=== PATIENT | male | born 1965 | race Caucasian/White ===

== ENCOUNTER 2018-11-18 16:17 | Emergency (ER) | payer SELFPAY ==
[~2018-11-18] VITALS: Ht 180.3 cm; Wt 88.2 kg
[2018-11-18 16:23] VITALS: Ht 180.3 cm; Wt 88.2 kg
[2018-11-18] MEDS ORDERED: COZAAR25 MG PO (16:25)
[2018-11-18] MEDS ORDERED: METFORMIN HCL500 M1 PO (16:25)
[2018-11-18] MEDS ORDERED: GLIPIZIDE10 MG PO (16:25)
[2018-11-18] MEDS ORDERED: ZANTAC300 MG PO (16:26)
[2018-11-18 16:48] LABS: BASOPHILS 0.1 % (0-2); EOSINOPHILS 2.1 % (0-7); HEMATOCRIT 45.8 % (42.0-54.0); HEMOGLOBIN 16.9 g/dL (13.5-17.5); IMMATURE GRANULOCYTES 0.1 % (0-5); LYMPHOCYTES 17.9 % (15-50); MCH 31.4 pg (26.0-34.0); MCHC 36.9 g/dL (31.0-37.0); MEAN PLATELET VOLUME 11.7 fL (7.4-10.4); MONOCYTES 5.5 % (2-11); NEUTROPHILS 74.3 % (40-80); PLATELET COUNT 236 10x3/uL (130-400); RBC 5.39 10x6/uL (4.20-6.10); WBC 9.7 10x3/uL (4.8-10.8)
[2018-11-18 17:05] LABS: ALBUMIN 4.5 g/dL (3.4-5.0); ANION GAP 18.7 mmol/L (8-16); BILIRUBIN - TOTAL 0.82 mg/dL (0.2-1.3); CALCIUM 9.5 mg/dL (8.5-10.1); CARBON DIOXIDE 21.5 mmol/L (21.0-32.0); CREATININE - SERUM 1.2 mg/dL (0.6-1.3); POTASSIUM - SERUM 4.2 mmol/L (3.5-5.1); PROTEIN - SERUM 8.9 g/dL (6.4-8.2)
[2018-11-18 18:17] LABS: APPEARANCE CLEAR (CLEAR); BILIRUBIN NEGATIVE (NEGATIVE); COLOR YELLOW (YELLOW); GLUCOSE 100 mg/dL (NEGATIVE); KETONE SMALL mg/dL (NEGATIVE); NITRITE NEGATIVE (NEGATIVE); PROTEIN 1+ mg/dL (NEGATIVE); SPECIFIC GRAVITY 1.025 (1.005-1.020); UROBILINOGEN NORMAL (NORMAL)
[2018-11-18] MEDS ORDERED: HYDROCODONE-A1 UDTA2 PO (18:18)
[2018-11-18] MEDS ORDERED: CYCLOBENZAPRINE10 MG PO (18:18)
[2018-11-18] MEDS ORDERED: ZOFRAN ODT4 MG/UDTAB PO (18:18)
[2018-11-18 18:19] LABS: BACTERIA FEW /hpf (NONE SEEN); EPITHELIAL CELLS NSEEN /hpf (0-5); HYALINE CAST 0-5 /lpf (NONE SEEN); MUCUS <1+ /lpf (NONE SEEN); RED CELLS - URINE NONE SEEN /hpf (0-5); WHITE CELLS - URINE 0-5 /hpf (0-5)
[2018-11-18 18:59] VITALS: BP 138/79
== END 2018-11-18 18:59 | disposition home or self-care (01) ==
LOC: D.ER 16:17
PROVIDERS: Emergency Medicine
DX: S32.009A Unspecified fracture of unspecified lumbar vertebra, initial encounter for closed fracture (principal); X58.XXXA Exposure to other specified factors, initial encounter; Y93.89 Activity, other specified; Y92.89 Other specified places as the place of occurrence of the external cause; K59.00 Constipation, unspecified

== ENCOUNTER 2019-08-23 12:32 | Emergency (ER) | payer SELFPAY ==
[~2019-08-23] VITALS: Ht 180.3 cm; Wt 89.5 kg
[~2019-08-23 12:32] MED LIST: COZAAR25 MG PO; CYCLOBENZAPRINE10 MG PO; GLIPIZIDE10 MG PO; HYDROCODONE-A1 UDTA2 PO; METFORMIN HCL500 M1 PO; ZANTAC300 MG PO; ZOFRAN ODT4 MG/UDTAB PO
[2019-08-23 12:41] VITALS: Ht 180.3 cm; Wt 89.5 kg
[2019-08-23] MEDS ORDERED: FAMOTIDINE10 MG PO (12:44)
[2019-08-23 12:59] LABS: BASOPHILS 0.1 % (0-2); EOSINOPHILS 0.3 % (0-7); HEMATOCRIT 47.8 % (42.0-54.0); HEMOGLOBIN 16.5 g/dL (13.5-17.5); IMMATURE GRANULOCYTES 0.1 % (0-5); MCH 30.5 pg (26.0-34.0); MCHC 34.5 g/dL (31.0-37.0); MCV 88.4 fL (80.0-100.0); MONOCYTES 5.4 % (2-11); NEUTROPHILS 74.1 % (40-80); PLATELET COUNT 213 10x3/uL (130-400); RBC 5.41 10x6/uL (4.20-6.10); RDW 13.5 % (11.5-14.5); WBC 8.7 10x3/uL (4.8-10.8)
[2019-08-23 13:08] LABS: CALC OSMOLALITY 282 mosm/kg (275-300); CALCIUM 9.5 mg/dL (8.5-10.1); CARBON DIOXIDE 24.7 mmol/L (21.0-32.0); CHLORIDE - SERUM 101 mmol/L (98-107); CREATININE - SERUM 1.2 mg/dL (0.6-1.3); GLUCOSE 320 mg/dL (74-106); POTASSIUM - SERUM 4.2 mmol/L (3.5-5.1); SODIUM 135 mmol/L (136-145); UREA NITROGEN 16 mg/dL (7-18); eGFR NON AFRICAN AMERICAN 67 mL/min (90-120)
[2019-08-23 13:16] LABS: ALBUMIN 4.4 g/dL (3.4-5.0); ALKALINE PHOSPHATASE 86 U/L (30-120); ALT (SGPT) 32 U/L (10-68); AMYLASE - SERUM 39 U/L (25-115); BILIRUBIN - TOTAL 0.79 mg/dL (0.2-1.3); LIPASE 146 U/L (73-393); PROTEIN - SERUM 8.6 g/dL (6.4-8.2); TROPONIN-I < 0.017 ng/mL (0.000-0.060)
[2019-08-23] MEDS ORDERED: COMPAZINE25 MG RC (14:35)
[2019-08-23] MEDS ORDERED: BENTYL 20 MG TA20 MG PO (14:35)
[2019-08-23 14:46] VITALS: BP 158/75
== END 2019-08-23 14:51 | disposition home or self-care (01) ==
LOC: D.ER 12:32
PROVIDERS: Family Medicine
DX: R11.2 Nausea with vomiting, unspecified (principal); E11.9 Type 2 diabetes mellitus without complications; I10 Essential (primary) hypertension; Z79.84 Long term (current) use of oral hypoglycemic drugs; R10.9 Unspecified abdominal pain

== ENCOUNTER 2020-01-22 21:30 | Inpatient (IN) | payer SELFPAY ==
[~2020-01-22] VITALS: Ht 180.3 cm; Wt 93.2 kg
[~2020-01-22 21:30] MED LIST changes: +BENTYL 20 MG TA20 MG PO; +COMPAZINE25 MG RC; +FAMOTIDINE10 MG PO
[2020-01-22] MEDS ORDERED: REGLAN10 MG PO (21:44)
[2020-01-22] MEDS ORDERED: OMEPRAZOLE20 M1 PO (21:47)
[2020-01-22] MEDS ORDERED: FLOMAX0.4 MG PO (21:48)
[2020-01-22 22:21] LABS: BASOPHILS 0.2 % (0-2); EOSINOPHILS 1.2 % (0-7); HEMATOCRIT 47.6 % (42.0-54.0); HEMOGLOBIN 16.8 g/dL (13.5-17.5); IMMATURE GRANULOCYTES 0.1 % (0-5); MCH 30.1 pg (26.0-34.0); MCHC 35.3 g/dL (31.0-37.0); MCV 85.3 fL (80.0-100.0); MEAN PLATELET VOLUME 11.1 fL (7.4-10.4); MONOCYTES 5.5 % (2-11); PLATELET COUNT 230 10x3/uL (130-400); RBC 5.58 10x6/uL (4.20-6.10); WBC 9.2 10x3/uL (4.8-10.8)
[2020-01-22 22:25] LABS: BILIRUBIN NEGATIVE (NEGATIVE); KETONE MODERATE mg/dL (NEGATIVE); NITRITE NEGATIVE (NEGATIVE); UROBILINOGEN NORMAL mg/dL (< 2)
[2020-01-22 22:35] LABS: CALC OSMOLALITY 284 mosm/kg (275-300); CALCIUM 9.1 mg/dL (8.5-10.1); CARBON DIOXIDE 22.9 mmol/L (21.0-32.0); CHLORIDE - SERUM 95 mmol/L (98-107); CREATININE - SERUM 1.3 mg/dL (0.6-1.3); POTASSIUM - SERUM 4.2 mmol/L (3.5-5.1); SODIUM 134 mmol/L (136-145); UREA NITROGEN 16 mg/dL (7-18); eGFR NON AFRICAN AMERICAN 61 mL/min (90-120)
[2020-01-22 22:38] LABS: GLUCOSE 395 mg/dL (74-106)
[2020-01-22 22:43] VITALS: BP 178/113
[2020-01-22 22:43] LABS: ALBUMIN 4.2 g/dL (3.4-5.0); ALKALINE PHOSPHATASE 103 U/L (30-120); ALT (SGPT) 42 U/L (10-68); AMYLASE - SERUM 25 U/L (25-115); BILIRUBIN - TOTAL 0.81 mg/dL (0.2-1.3); LIPASE 92 U/L (73-393); PROTEIN - SERUM 8.7 g/dL (6.4-8.2); TROPONIN-I < 0.017 ng/mL (0.000-0.060)
[2020-01-22 23:31] VITALS: BP 167/115
[2020-01-22 23:45] VITALS: BP 155/111
[2020-01-23] VITALS (11 sets, daily range): BP systolic 99–172; BP diastolic 57–109; Ht 180.3 cm; Wt 93.2 kg
[2020-01-23] MEDS ORDERED: GLUCOPHAGE500 MG PO (02:42)
--- NOTE | 2020-01-23 03:08 | NUR ---
RECIEVED REPORT FROM ARMIDA ROGERS IN ER. ARRIVED TO FLOOR IN W/C. TRANSFERED SELF TO BED. ALERT AND ORIENTED X4. UP AD MAMI TO B/R. DENIES ANY NEEDS. ASSESSMENT COMPLETED.
[2020-01-23 06:24] LABS: APTT 28.3 SECONDS (22.8-39.4); INR 1.11 (0.85-1.17); PROTIME 14.3 SECONDS (11.6-15.0)
[2020-01-23 06:26] LABS: D-DIMER-QUANTITATIVE 0.29 ug/mLFEU (0.20-0.54)
[2020-01-24] VITALS: BP 124/81
--- NOTE | 2020-01-24 01:20 | NUR ---
PATIENT CONVERTED BACK TO NORMAL SINUS.
[2020-01-24 04:00] VITALS: BP 122/82
[2020-01-24 05:48] LABS: BASOPHILS 0.1 % (0-2); EOSINOPHILS 3.5 % (0-7); HEMATOCRIT 42.1 % (42.0-54.0); HEMOGLOBIN 14.3 g/dL (13.5-17.5); IMMATURE GRANULOCYTES 0.1 % (0-5); LYMPHOCYTES 46.7 % (15-50); MCH 29.3 pg (26.0-34.0); MCV 86.3 fL (80.0-100.0); MONOCYTES 6.8 % (2-11); NEUTROPHILS 42.8 % (40-80); PLATELET COUNT 204 10x3/uL (130-400); RBC 4.88 10x6/uL (4.20-6.10); RDW 12.8 % (11.5-14.5); WBC 7.2 10x3/uL (4.8-10.8)
[2020-01-24 06:19] LABS: INR 1.06 (0.85-1.17); PROTIME 13.7 SECONDS (11.6-15.0)
[2020-01-24 06:21] LABS: ALKALINE PHOSPHATASE 73 U/L (30-120); ALT (SGPT) 40 U/L (10-68); BILIRUBIN - TOTAL 0.62 mg/dL (0.2-1.3); CALCIUM 8.2 mg/dL (8.5-10.1); CARBON DIOXIDE 24.3 mmol/L (21.0-32.0); CHLORIDE - SERUM 101 mmol/L (98-107); CHOL - HDL RATIO 10.3 ratio (2.3-4.9); CHOLESTEROL, TOTAL 196 mg/dL (0-200); CREATINE KINASE 50 UL (21-232); HDL CHOLESTEROL 19 mg/dL (32-96); LDL CHOLESTEROL 129 mg/dL (0-100); LDL-HDL RATIO 6.8 ratio (1.5-3.5); MAGNESIUM - SERUM 1.9 mg/dL (1.8-2.4); POTASSIUM - SERUM 3.8 mmol/L (3.5-5.1); PRO BNP 703 pg/mL (0-125); PROTEIN - SERUM 6.7 g/dL (6.4-8.2); SODIUM 134 mmol/L (136-145); TRIGLYCERIDE 243 mg/dL (30-200); UREA NITROGEN 12 mg/dL (7-18); eGFR NON AFRICAN AMERICAN 83 mL/min (90-120)
[2020-01-24 06:24] LABS: CALC OSMOLALITY 275 mosm/kg (275-300); GLUCOSE 237 mg/dL (74-106)
--- NOTE | 2020-01-24 08:10 | NUR ---
PATIENT JUST GOT A SHOWER THIS AM, VISITED WITH PATIENT. PATIENT IS SITTING UP TO SIDE OF THE BED. PLAN OF CARE REVIEWED AND ASSESSMENT HAS BEEN COMPLETED. NAD NOTED. CALL LIGHT IN REACH. MD STATES THERE IS A GOOD CHANCE PATIENT WILL BE ABLE TO GO HOME TODAY.
[2020-01-24] MEDS ORDERED: BETAPACE 120 M120 MG PO (10:42)
--- NOTE | 2020-01-24 11:41 | NUR ---
NURSE GIVES PATIENT DC INSTRUCTIONS, PATIENT SIGNS DOCUMENTATION. PATIENT DENIES QUESTIONS OR NEEDS. IV REMOVED PRESSURE DRESSING APPLIED. NAD NOTED. CALL LIGHT IN REACH
--- NOTE | 2020-01-24 12:33 | NUR ---
PATIENT WHEELED OUT WHEN WHEEL CHAIR AT THIS TIME. PERSONAL BELONGINGS IN HAND. HAS PAPERWORK AND FOLLOW UP APPTS REVIEWED WITH PATIENT. PATIENT VERBS UNDERSTANDING. NAD NOTED.
--- NOTE | 2020-01-25 08:55 | CN ---
PATIENT NAME:LEONELA PHOENIX JR MEDICAL RECORD: [id number] : 69 LOCATION:. D.2117 ADMIT DATE: 01/23/20 ACCOUNT: [id number] CONSULTING PHYSICIAN: ZOYA BOURNE MD REFERRING PHYSICIAN: ALEX TAYLOR MD DATE OF CONSULTATION: 01/23/2020 HISTORY OF PRESENT ILLNESS: A 55-year-old gentleman with history of hypertension, anxiety, and BPH admitted with really more gastrointestinal type symptomatology, nausea, some emesis, has had episode like this, similarly not lasting quite long, was found to be in atrial fibrillation with RVR. We are asked to see him concerning his cardiovascular status. PAST MEDICAL HISTORY: Includes; 1. History of diabetes mellitus. 2. Hypertension. 3. Dyslipidemia. 4. Gastroesophageal reflux disease. ALLERGIES: AUGMENTIN, BACTRIM. MEDICATIONS: Typically include losartan 25 mg p.o. every day, Prilosec 20 every day, metformin 1 gram b.i.d. SOCIAL HISTORY: Nonsmoker, nondrinker. Occasional marijuana use. No set exercise program. REVIEW OF SYSTEMS: The patient reports easy bruising but reports no swollen glands. The patient reports no fever, no night sweats, no significant weight gain, no significant weight loss. No significant exercise tolerance. The patient reports no dry eyes, no irritation, no vision change. Patient reports no difficulty hearing and no ear pain. Patient reports no frequent nose bleeds or nose and sinus problems. Patient reports on arm pain on exertion. No shortness of breath while lying down. No history of heart murmur. Patient reports no cough, no wheezing or coughing up blood. Patient reports no abdominal pain, no vomiting. Normal appetite. No diarrhea and not vomiting blood. No nausea and no constipation. Patient reports no incontinence. No difficulty urinating. No hematuria. No increased frequency. Patient reports no muscle aches. No weakness, no arthralgias, no back pain. No swelling of the extremities. Patient reports no abnormal mole, no jaundice, no rashes. Reports no loss of consciousness. No weakness and no numbness. No seizures, dizziness, or headaches. The patient reports no depression, no sleep disturbance, feeling safe in a relationship and no alcohol abuse. Patient reports on fatigue. Reports no runny nose or sinus pressure. No itching, no hives, and no frequent sneezing. PHYSICAL EXAMINATION: GENERAL: Pleasant, no acute distress, appears stated age. VITAL SIGNS: Blood pressure 109/68, pulse 61 and irregular. HEENT: Normocephalic, atraumatic. NECK: No JVD or bruit. HEART: Irregular, rate is controlled. A II/ systolic ejection murmur. LUNGS: Fairly good excursion. ABDOMEN: Soft, nontender. EXTREMITIES: Pulses 2+. No edema. CONSULT REPORT [id number] LEONELA PHOENIX JR IMPRESSION AND PLAN: Atrial fibrillation, rates are at this point in time controlled on Cardizem drip. We will begin Betapace 120 b.i.d. as well as Xarelto. Duration is greater than 48 hours, so we will not attempt cardioversion at this point. We will plan on ischemic workup when rates are better controlled. Further recommendations based on the above. TRANSINT:[id number] Voice Confirmation ID: [id number] DOCUMENT ID: [id number] ZOYA BOURNE MD at 0855 CC: [id number] DICTATION DATE: 01/23/20 1158 BROACH OPERATOR: 01/23/20 1457 DIS IN 01/24/20 [facility] [address] [place] [place] [id number]
--- NOTE | 2020-01-25 08:55 | EC ---
PATIENT:LEONELA PHOENIX DATE OF SERVICE: 01/23/20 SEX: M MEDICAL RECORD: [id number] DATE OF : [birth year] LOCATION:D. D211 AGE OF PATIENT: 55 ADMISSION DATE: 01/23/20 REFERRING PHYSICIAN: INTERPRETING PHYSICIAN: ZOYA BOURNE MD ECHOCARDIOGRAM REPORT ECHO CHARGES 4 ECHO COMPLETE Date: 01/23/20 CLINICAL DIAGNOSIS: AFIB ECHOCARDIOGRAPHIC MEASUREMENTS (adult normal given) AC root (d.<3.7cm) 2.8 cm LV Septum d (<1.2 cm> 0.9 cm Valve Excursion 1.5 cm LV Septum (systole) 1.2 cm Left Atria (s.<4.0cm> 2.9 cm LVPW d(<1.2cm) 1.0 cm RV (d.<2.3cm) 2.8 cm LVPW (sytole) 1.1 cm LV diastole(<5.6CM) 5.3 cm MV E-F(>70mm/sec) cm LV systole 4.2 cm LVOT Diameter 1.8 cm MV exc.(>10mm) 1.9 cm Est.ejection fraction (50-75%) % DOPPLER: LVIT cm/sec A 33 cm/sec E 87 cm/sec LA cm/sec RVSP 16 mmHg LVOT 120 cm/sec AOP1/2T m/s Asc. Ao 131 cm/sec RVOT 65 cm/sec RA cm/sec PA 87 cm/sec AV Gradient Peak 6.7 mmHg AV Mean 3.6 mmHg AV Area 2.5 cm MV Gradient Peak 5.4 mmHg MV Mean 2.0 mmHg MV Area cm COMMENTS: Delimer: Demarco JERRY Asphalt Smoother: 3 Dr. Goldsmith TAPE# PACS Pericardial Effusion N DATE OF SERVICE: Adequate 2D, color flow imaging, spectral Doppler, and M-Mode. No LVH. LV internal dimension is normal. Wall motion is normal. EF is greater than or equal to 50%. Aortic valve is tricuspid. No evidence of stenosis by Doppler interrogation. Left atrium is normal. Mitral valve shows no prolapse. Trace MR. Right-sided chambers are grossly normal. Trace TR. TRANSINT:[id number] Voice Confirmation ID: [id number] DOCUMENT ID: [id number] ECHOCARDIOGRAM REPORT [id number] ALBANLEONELAZOYA SANCHEZ JR, MD at 0855 CC: [id number] DICTATION DATE: 01/24/20 0754 AIRCRAFT DE ICER INSTALLER: 01/24/20 0912 DIS IN 01/24/20 [place] [id number] [place] [id number]
--- NOTE | 2020-01-27 09:15 | MORECARE ---
CASE MANAGEMENT DISCHARGE SUMMARY PATIENT: LEONELA PHOENIX JR UNIT: [id number] ADM DATE: 01/23/20 AGE: 55 : [birth year] SEX: M ROOM/BED: D.2117 AUTHOR: ZEUS EPPS PHYSICIAN: REFERRING PHYSICIAN: ALEX TAYLOR MD DATE OF SERVICE: 01/27/20 Discharge Plan Patient Name: LEONELA PHOENIX [facility] : 1965 Planned Disposition: Anticipated Discharge Date: Discharge Date: 01/24/2020 Expected LOS: 0 Initial Reviewer: [email or web address] Initial Review Date: 01/27/2020 Generated: 01/27/20 10:14 am Patient Name: LEONELA PHOENIX Page [id number] at 0915 All edits/amendments must be made on the electronic document DICTATION DATE: 01/27/20913 MINE GEOLOGIST: GONZÁLEZ 01/27/20913 RPT#: [id number] DC DATE:01/24/20 STATUS: DIS IN [facility] [address] [place] [address] END OF REPORT
== END 2020-01-24 13:22 | disposition home or self-care (01) | DRG 309 ==
LOC: D.ER 21:30 → D.M2 01-23 00:08 → D.EDHOLD 01-23 00:08 → D.M2 01-23 01:36
PROVIDERS: Family Medicine; ADMIT Family Medicine; ATTEND Family Medicine
DX: I48.0 Paroxysmal atrial fibrillation (principal); E87.1 Hypo-osmolality and hyponatremia; E11.65 Type 2 diabetes mellitus with hyperglycemia; I10 Essential (primary) hypertension; K21.9 Gastro-esophageal reflux disease without esophagitis; G89.29 Other chronic pain; M54.9 Dorsalgia, unspecified; N40.0 Benign prostatic hyperplasia without lower urinary tract symptoms; F41.9 Anxiety disorder, unspecified; F32.9 Major depressive disorder, single episode, unspecified; F12.90 Cannabis use, unspecified, uncomplicated; Z87.891 Personal history of nicotine dependence

== ENCOUNTER 2020-01-31 10:45 | Inpatient (IN) | payer SELFPAY ==
[~2020-01-31] VITALS: Ht 180.3 cm; Wt 88.5 kg
--- NOTE | ~2020-01-31 | HEMODYNAMI ---
PATIENT:LEONELA PHOENIX JR MEDICAL RECORD: [id number] : 69 [facility]ATION[facility] [id number] ADMISSION DATE: 01/31/20 Generatedon:02/01/202013:42 Patient name: LEONELA PHOENIX Patient #: [id number] SSN: : 1965 Date of study: 02/01/2020 Page: Of Hemodynamic Procedure Report Patient Data Patient Demographics Procedure consent was obtained First Name: LEONELA Gender: Male Last Name: ALBAN Suffix: [facility] Initial: Charmaine : 1965 Patient #: [id number] Age: 55 year(s) Race: Unknown Additional ID: [id number] Contact details Address: [address] [place] [address] State: [place] City: [place] Zip code: [address] Past Medical History Allergies Allergen Reaction Date Comments Reported Other allergy 02/01/2020 AUGMENTIN, BACTRIM Admission Admission Data Admission Date: 01/31/2020 Admission Time: 19:17 Room #: D.2121 Height (in.): 70.87 BSA: 2.09 (m2) Height (cm.): 180 BMI: 27.47 (kg/m2) Weight (lbs.): 196.21 Weight (kg.): 89 Lab Results Lab Result Date: 02/01/2020 Lab Result Time: 0:00 Biochemistry Name Units Result Min Max BUN mg/dl 17 --(---*)-- 7 18 Creatinine mg/dl 1 --(--*-)-- 0.6 1.3 eGFR ml/min 82.43760 -*(----)-- 90 120 NONAFRICAN CBC Name Units Result Min Max Hematocrit % 44.4 --(*---)-- 42 54 Hemoglobin g/dl 15.5 --(-*--)-- 13.5 17.5 Procedure Procedure Types Cath Procedure Diagnostic Procedure [facility] w/Coronaries Sedation Charges Moderate Sedation 40-54 minutes PCI Procedure Coronary Stent Coronary Stent Initial Hemochron ACT Test Procedure Description Procedure Date Procedure Date: 02/01/2020 Procedure Start Time: 12:53 Procedure End Time: 13:41 Procedure Staff Name Function Kam Funes MD Performing Physician Darlene Chavira RT Monitor Alban Fierro RN Nurse Nimco Whitley RT Scrub Procedure Data Cath Procedure Fluoroscopy Diagnostic fluoroscopy Total fluoroscopy Time: 6.7 time: 6.7 min min Diagnostic fluoroscopy Total fluoroscopy dose: 492 dose: 492 mGy mGy Contrast Material Contrast Material Type Amount (ml) Isovue 300 106 Entry Location Entry Primary Successful Side Size Upsize Upsize Entry Closure Succes sful Closure Location (Fr) 1 (Fr) 2 (Fr) Remarks Device Remarks Femoral Right 5 Fr 6 Fr Exoseal artery Short Estimated blood loss: 10 ml Diagnostic catheters Device Type Used For End Catheter Placement MULTIPACK JL 4.0 5Fr Procedure catheter MULTIPACK 3DRC 5Fr Procedure catheter MULTIPACK Pigtail 5 Fr Procedure catheter Procedure Complications No complications Procedure Medications Medication Administration Route Dosage Oxygen etCO2 Nasal cannula 2 l/min Heparin Flush Bag added to field 2 bags (1000units/500ml NS) 0.9% NaCl I.V. 100 ml/hr Lidocaine 2% added to field 20 Fentanyl I.V. 50 mcg Versed I.V. 1 mg Fentanyl I.V. 50 mcg Versed I.V. 1 mg Fentanyl I.V. 50 mcg Versed I.V. 1 mg Fentanyl I.V. 50 mcg Versed I.V. 1 mg Fentanyl I.V. 50 mcg Versed I.V. 1 mg Fentanyl I.V. 50 mcg Versed I.V. 1 mg Heparin Bolus I.V. 2000 units Heparin Bolus I.V. 3000 units Integrilin (Bolus I.V. 7.9 ml 2mg/ml) Integrilin (Bolus I.V. 2.1 ml 2mg/ml) Plavix P.O. 600 mg Hemodynamics Rest BSA: 2.09 (m2) HGB: 15.5 (g/dl) O2 Consumption: Estimated: 244.16 (ml/min) O2 Co nsumption indexed: Estimated:116.82 (ml/min/m) Heart Rate: 64 (bpm) Pressure Samples Time Site Value (mmHg) Purpose Heart Use Rate(bpm) 13:00 LV 113/8,10 Snapshot 69 13:00 LV 118/7,13 Snapshot 66 Gradients Valve Time Site Site Mean SEP/DFP Peak To Heart Use 1 2 (mmHg) (sec/min) Peak Rate (mmHg) (bpm) Aortic 13:00 LV AO 67 Snapshots Pre Cath Intra NCS Post Cath Vital Signs Time Heart Resp SPO2 NIBP (mmHg) Rhythm Pain Sedation Rate (ipm) (%) Status Level (bpm) 12:39:54 66 16 96 144/99(124) NSR (Missing) 10(A) 12:44:02 66 17 97 136/91(104) NSR (Missing) 10(A) 12:48:10 75 16 95 126/85(103) NSR (Missing) 10(A) 12:52:15 62 16 91 113/72(101) NSR (Missing) 10(A) 12:56:17 63 17 88 111/75(104) NSR (Missing) 10(A) 13:01:12 68 16 90 128/78(96) NSR (Missing) 9(A) 13:05:16 67 18 83 118/84(97) NSR (Missing) 9(A) 13:09:21 64 17 84 112/69(86) NSR (Missing) 9(A) 13:13:25 68 16 86 112/67(93) NSR (Missing) 9(A) 13:17:27 68 17 84 108/72(85) NSR (Missing) 9(A) 13:21:31 68 16 86 105/65(90) NSR (Missing) 9(A) 13:25:35 72 16 87 112/61(103) NSR (Missing) 9(A) 13:29:36 70 16 84 111/76(92) NSR (Missing) 9(A) 13:33:40 70 17 88 104/68(91) NSR (Missing) 9(A) 13:37:35 72 16 120/89(102) NSR (Missing) 9(A) Medications Time Medication Route Dose Verified Delivered Reason Notes Effectiveness by by 12:42:59 Oxygen etCO2 2 Kam Phoenix Per physician Nasal l/min St Aurelio Fierro RN cannula 12:43:08 Heparin Flush added 2 Kam Phoenix used for Bag to bags [facility] Aurelio Fierro RN procedure (1000units/500ml field NS) 12:43:18 0.9% NaCl I.V. 100 Kam Alban Per physician ml/hr [facility] Aurelio Fierro RN, MD 12:43:29 Lidocaine 2% added 20ml Kam Alban for local to vial [facility] Aurelio Fierro RN anesthetic field 12:49:54 Fentanyl I.V. 50 Kam Alban for sedation [facility] Aurelio Fierro RN, MD 12:50:00 Versed I.V. 1 mg Kam Alban for sedation [facility] Aurelio Fierro RN, MD 12:52:13 Fentanyl I.V. 50 Kam Alban for sedation [facility] Aurelio Fierro RN, MD 12:52:23 Versed I.V. 1 mg Kam Alban for sedation [facility] Aurelio Fierro RN, MD 12:53:55 Fentanyl I.V. 50 Kam Alban for sedation [facility] Aurelio Fierro RN, MD 12:53:58 Versed I.V. 1 mg Kam Alban for sedation St Aurelio Fierro RN, MD 12:55:48 Fentanyl I.V. 50 Kam Alban for sedation [facility] Aurelio Fierro RN, MD 12:55:51 Versed I.V. 1 mg Kam Alban for sedation St Aurelio Fierro RN, MD 12:57:27 Fentanyl I.V. 50 Kam Alabn for sedation [facility] Aurelio Fierro RN, MD 12:57:29 Versed I.V. 1 mg Kam Alban for sedation St Aurelio Fierro RN, MD 13:02:48 Fentanyl I.V. 50 Kam Alban for sedation [facility] Aurelio Fierro RN, MD 13:02:51 Versed I.V. 1 mg Kam Alban for sedation St Aurelio Fierro RN, MD 13:03:16 Heparin Bolus I.V. 2000 Kam Phoenix for units [facility] Aurelio Fierro RN anticoagulation 13:19:35 Heparin Bolus I.V. 3000 Kam Phoenix for units [facility] Aurelio Fierro RN anticoagulation 13:19:53 Integrilin I.V. 7.9 Kam Phoenix for (Bolus 2mg/ml) ml [facility] Aurelio Fierro RN anticoagulation 13:20:06 Integrilin I.V. 2.1 Kam Phoenix for (Bolus 2mg/ml) ml [facility] Aurelio Fierro RN anticoagulation 13:32:14 Plavix P.O. 600 Kam Phoenix for mg [facility] Aurelio Fierro RN antiplatelet therapy Procedure Log Time Note 11:57:21 Informed consent obtained and on chart 12:24:11 Procedure Status Urgent Heart Cath (IP). 12:24:12 Time tracking: Regular hours (M-F 7:00 - 5:00) 12:24:16 Plan of Care:Hemodynamics will remain stable., Cardiac rhythm will remain stable., Comfort level will be maintained., Respiratory function will remain adequate., Patient/ family verbilizes understanding of procedure., Procedure tolerated without complication., Recovers from procedure without complications.. 12:24:17 Nimco Whitley RT(R) sent for patient. Start room use. 12:26:17 H&P Date Dictated: 01/31/2020 ER History on chart.. 12:26:41 Patient allergic to Other allergyAUGMENTIN, BACTRIM 12:28: Lab Result : BUN 17 mg/dl 12:28: Lab Result : Creatinine 1 mg/dl 12:28: Lab Result : eGFR NONAFRICAN 82.50256 ml/min 12:28:01 Lab Result : Hemoglobin 15.5 g/dl 12:28:01 Lab Result : Hematocrit 44.4 % 12:28:35 Patient Weight : 196.21 lbs 12:28:38 Patient Height : 70.87 inches 12:34:23 Patient received from Med II to CCL 3 Alert and oriented. Tansferred to table in Supine position. 12:34:25 Warm blankets applied, and sarah beth hugger turned on for patient comfort. 12:34:25 Correct patient and procedure confirmed by team. 12:34:25 ECG and BP/O2 sat monitors applied to patient. 12:38:47 Vital chart was started 12:41:57 Baseline sample Acquired. 12:42:01 Rhythm: sinus rhythm 12:42:02 Full Disclosure recording started 12:42:03 Pre-procedure instructions explained to patient. 12:42:03 Pre-op teaching completed and patient verbalized understanding. 12:42:09 Family in patients room. 12:42:11 Patient NPO since Midnight. 12:42:17 Is patient on blood thinner?No 12:42:19 Patient diabetic? Yes. 12:42:20 If diabetic: On Metformin? Yes 12:42:27 If on Metformin: Last Dose? 01/31/2020 12:42:29 Previous problem with sedation/anesthesia? No ? 12:42:31 Snore? Yes 12:42:32 Sleep apnea? No 12:42:33 Deviated septum? No 12:42:34 Opens mouth fully? Yes 12:42:36 Airway obstruction? Yes ? 12:42:39 Dentures? No ? 12:42:43 Pre procedure: right dorsailis pedis pulse 1+ Palpable, but thready & weak; easily obliterated 12:42:45 Patient pain scale 0/10 ?. 12:42:50 IV patent on arrival in left hand with 0.9% NaCl at [facility]. 12:42:54 Lab results completed and on chart. 12:42:57 Right groin area was prepped with chlora-prep and draped in sterile fashion 12:42:58 Alarms reviewed by R. N. 12:42:58 Sharps counted by scrub and verified by R.N. 12:42:59 Oxygen 2 l/min etCO2 Nasal cannula was administered by Alban Fierro RN; Per physician; Verbal order read back and verified. 12:43:00 Use device set Femoral Dx 12:43:01 ACIST Syringe (45683) opened to sterile field. 12:43:01 Bag Decanter (2002S) opened to sterile field. 12:43:02 ACIST Hand Control (53599) opened to sterile field. 12:43:02 ACIST Manifold (08467) opened to sterile field. 12:43:03 Tegaderm 4 x 4 (1626W) opened to sterile field. 12:43:04 Medline Cath Pack ([id number]) opened to sterile field. 12:43:05 DIAGNOSTIC Multipack 5Fr catheter set (EX0989) opened to sterile field. 12:43:06 SHEATH 5FR [place] (XBU177) opened to sterile field. 12:43:07 EMERALD Guide Wire (773-467) opened to sterile field. 12:43:08 Heparin Flush Bag (1000units/500ml NS) 2 bags added to field was administered by Alban Fierro RN; used for procedure; Verbal order read back and verified. 12:43:18 0.9% NaCl 100 ml/hr I.V. was administered by Alban Fierro RN; Per physician; Verbal order read back and verified. 12:43:29 Lidocaine 2% 20ml vial added to field was administered by Alban Fierro RN; for local anesthetic; Verbal order read back and verified. 12:48:49 Zero performed for pressure channel P1 12:48:54 Zero performed for pressure channel P1 12:49:10 --------ALL STOP TIME OUT------ 12:49:10 Final Timeout: patient, procedure, and site verified with staff and physician. All members of the team are in agreement. 12:49:11 Right groin site verified by team. 12:49:15 Fire Safety Assessment: A--An alcohol-based skin anteseptic being used preoperatively., C--Open oxygen or nitrous oxide is being used., D--An ESU, laser, or fiber-optic light is being used. 12:49:18 Physical assessment completed. ASA score P 2 - A patient with mild systemic disease as per Kam Funes MD. 12:49:22 2) 60-89 Mildly reduced kidney function, and other findings (as for stage 1) point to kidney disease. 12:49:26 Maximum allowable contrast dose (3.7 X eGFR X 0.75)230 ml. 12:49:30 Sedation plan: IV Moderate Sedation Medication:Versed, Fentanyl 12:49:54 Fentanyl 50 mcg I.V. was administered by Alban Fierro RN; for sedation; Verbal order read back and verified. 12:50:00 Versed 1 mg I.V. was administered by Alban Fierro RN; for sedation; Verbal order read back and verified. 12:52:13 Fentanyl 50 mcg I.V. was administered by Alban Fierro RN; for sedation; Verbal order read back and verified. 12:52:23 Versed 1 mg I.V. was administered by Alban Fierro RN; for sedation; Verbal order read back and verified. 12:53:28 Procedure started. 12:53:55 Fentanyl 50 mcg I.V. was administered by Alban Fierro RN; for sedation; Verbal order read back and verified. 12:53:57 Local anesthetic to right femoral artery with Lidocaine 2% by Kam Funes MD.INITIAL ACCESS ONLY 12:53:58 Versed 1 mg I.V. was administered by Alban Fierro RN; for sedation; Verbal order read back and verified. 12:54:52 A 5 Fr sheath was inserted into the Right Femoral artery 12:55:02 A MULTIPACK JL 4.0 5Fr catheter was advanced over the wire and used for Procedure. 12:55:48 Fentanyl 50 mcg I.V. was administered by Alban Fierro RN; for sedation; Verbal order read back and verified. 12:55:51 Versed 1 mg I.V. was administered by Alban Fierro RN; for sedation; Verbal order read back and verified. 12:56:45 LCA angiography performed. 12:56:59 Catheter removed. 12:57:05 A MULTIPACK 3DRC 5Fr catheter was advanced over the wire and used for Procedure. 12:57:27 Fentanyl 50 mcg I.V. was administered by Alban Fierro RN; for sedation; Verbal order read back and verified. 12:57:29 Versed 1 mg I.V. was administered by Alban Fierro RN; for sedation; Verbal order read back and verified. 12:58:49 RCA angiography performed. 12:58:50 Catheter removed. 12:58:59 A MULTIPACK Pigtail 5 Fr catheter was advanced over the wire and used for Procedure. 12:59:17 LV gram done using PECK 12:59:19 Injector settings: Ml/sec: 10, Volume: 20, 13:00:08 LV hemodynamics recorded. 13:00:24 EF : 55 % 13:00:26 Catheter removed. 13:01:42 SHEATH 6FR [place] (ZGS221) opened to sterile field. 13:01:46 Sheath upsized to a 6 Fr Short. 13:01:57 GUIDE 6FR AR 1.0 catheter ([id number]) opened to sterile field. 13:02:03 [place] Verrata Plus pressure wire ([id number]) opened to sterile field. 13:02:41 INFLATOR Merit BasixCompak (HB9705) opened to sterile field. 13:02:48 Fentanyl 50 mcg I.V. was administered by Alban Fierro RN; for sedation; Verbal order read back and verified. 13:02:50 6 Fr AR 1 guide catheter was inserted over the wire 13:02:51 Versed 1 mg I.V. was administered by Alban Fierro RN; for sedation; Verbal order read back and verified. 13:03:16 Heparin Bolus 2000 units I.V. was administered by Alban Fierro RN; for anticoagulation; Verbal order read back and verified. 13:04:31 FFR/IFR wire advanced. 13:05:03 IFR WIRE REMOVED. UNABLE TO CROSS RCA 13:07:40 GUIDE CATHETER REMOVED FOR SIDE HOLE 13:07:47 GUIDE 6FR AR 1.0 SH catheter ([id number]) opened to sterile field. 13:17:58 Pre PCI Site: [place] RCA has 80% stenosis. 13:18:04 6 Fr AR 1 SH guide catheter was inserted over the wire 13:18:10 COUGAR 300cm guide wire ([id number]) opened to sterile field. 13:18:33 COUGAR 300 wire advanced. 13:19:35 Heparin Bolus 3000 units I.V. was administered by Alban Fierro RN; for anticoagulation; Verbal order read back and verified. 13:19:41 Wire advanced across lesion. 13:19:53 Integrilin (Bolus 2mg/ml) 7.9 ml I.V. was administered by Alban Fierro RN; for anticoagulation; Verbal order read back and verified. 13:20:06 Integrilin (Bolus 2mg/ml) 2.1 ml I.V. was administered by Alban Fierro RN; for anticoagulation; Verbal order read back and verified. 13:20:43 ACC Pre-intervention WINIFRED Flow is 2. 13:22:12 Place stent Inflation Number: 1 A ISAAK RX 3.0 x 15 stent ([id number]) was prepped and advanced across the Dist RCA . The stent was deployed at 14 LINDSAY for 0:00 (min:sec) . 13:22:59 Inflation number: 2 The stent balloon was then re-inflated across the Dist RCA -1 to 4 LINDSAY for 0:00 (min:sec) -1. 13:24:24 MULTIPLE INFLATIONS OF 6ATMS ON RCA 13:25:06 Stent catheter was removed intact over wire. 13:26:42 Place stent Inflation Number: 1 A ISAAK RX 3.0 x 30 stent ([id number]) was prepped and advanced across the Mid RCA . The stent was deployed at 14 LINDSAY for 0:00 (min:sec) . 13:27:10 Inflation number: 2 The stent balloon was then re-inflated across the Mid RCA to 10 LINDSAY for 0:00 (min:sec) . 13:28:17 Stent catheter was removed intact over wire. 13:28:17 Wire removed. 13:28:18 Guide catheter removed. 13:28:48 EXOSEAL 6Fr (EX600) opened to sterile field. 13:29:27 Sheath removed intact; hemostasis achieved with Exoseal to the Right Femoral artery. 13:29:40 Procedure ended.(Physican Out) 13:30:58 Fluoroscopy time 06.70 minutes. 13:31:05 Flurop Dose total: 492 13:31:05 Fluoroscopy dose: 492 mGy 13:31:14 Dose Area Product 3537 mGy/cm. 13:31:18 Contrast amount:Isovue 300 106ml. 13:32:14 Plavix 600 mg P.O. was administered by Alban Fierro RN; for antiplatelet therapy; Verbal order read back and verified. 13:34:48 Post-op/insertion site Right Femoral artery dressed using a 4 x 4 and Tegaderm. 13:34:50 Post-procedure physical assessment completed. ASA score P 2 - A patient with mild systemic disease as per Kam Funes MD. 13:34:53 Post procedure rhythm: sinus rhythm 13:34:55 Estimated blood loss: 10 ml 13:34:56 Post procedure instruction explained to patient.Patient verbalizes understanding. 13:34:56 Patient needs reinforcement of post procedure teaching. 13:38:19 ACT drawn and resulted at 194 seconds. (normal therapeutic range 180-240 seconds). 13:38:24 FEMSTOP Gold (E35884) opened to sterile field. 13:38:47 Femstop placed over the right femoral artery at 140 mmHg. Hemostasis achieved. 13:39:32 Procedure type changed to Cath procedure, Diagnostic procedure, C, [facility] w/Coronaries, Sedation Charges, Moderate Sedation 40-54 minutes, PCI procedure, Coronary Stent, Coronary Stent Initial, Hemochron ACT Test 13:40:47 Procedure and supply charges have been captured, reviewed, submitted and are correct. 13:40:50 Procedure Complication : No complications 13:40:52 Vital chart was stopped 13:40:53 [facility] Findings: MVD- PCI performed (see procedure note) 13:40:54 Operative report dictated upon procedure completion. 13:40:55 See physician's report for complete and final results. 13:40:57 Report given to [facility] II. 13:40:59 Patient transfered to [facility] with Bed. 13:41:00 Procedure ended. 13:41:00 Full Disclosure recording stopped 13:41:09 ACC-PCI Only Patient was given prescriptions, or instructed by Kam Funes MD to start/continue the following medications upon discharge: Plavix 13:41:10 End room use (Document Last) 13:41:17 End room use (Document Last) 13:41:52 End room use (Document Last) Intervention Summary Intervention Notes Time ActionType Lesion and Equipment Used Action# Pressure Duration Attributes 13:22:12 Place stent Dist RCA ISAAK RX 3.0 x 1 14 00:00 15 stent ([id number]) 13:22:59 Reinflate Dist RCA ISAAK RX 3.0 x 2 4 00:00 stent 15 stent balloon ([id number]) 13:26:42 Place stent Mid RCA ISAAK RX 3.0 x 1 14 00:00 30 stent ([id number]) 13:27:10 Reinflate Mid RCA ISAAK RX 3.0 x 2 10 00:00 stent 30 stent balloon ([id number]) Device Usage Item Name Manufacture Quantity Catalog Hospital Part Current Minimal Lot# / Number Charge Number Stock Stock Serial# Code ACIST Syringe Acist 1 58356 350995 668329 863015 20 (20274) Medical Systems Inc Bag Decanter Microtek 1 2001S 124722 86129 164132 5 (2001S) Medical Inc. ACIST Hand Acist 1 34927 449850 113814 634828 5 Control Medical (16092) Systems Inc ACIST Manifold Acist 1 86833 503274 285468 224663 5 (80019) Medical Systems Inc Tegaderm 4 x 4 3M 1 1626W 341658 745457 147694 5 (1626W) Medline Cath Medline 1 [id number] 615590 60817 166138 5 Pack ([id number]) DIAGNOSTIC Cardinal 1 CI4014 310791 94920 537814 30 Multipack 5Fr Health catheter set (ZD9165) SHEATH 5FR Terumo 1 HME695 202451 324215 120027 5 [place] (PLV333) EMERALD Guide Cardinal 1 502-310 609831 575075 608881 5 Wire (502-194) Health MULTIPACK JL Cardinal 1 089396 5 4.0 5Fr Health catheter MULTIPACK 3DRC Cardinal 1 422118 5 5Fr catheter Health MULTIPACK Cardinal 1 206044 5 Pigtail 5 Fr Health catheter SHEATH 6FR Terumo 1 HHN234 747259 652404 823552 40 [place] (NUW458) GUIDE 6FR AR Medtronic 1 [id number] 063170 80310 774074 1 1.0 catheter ([id number]) [place] 1 26940G 716817 924726842 992717 5 Verrata Plus pressure wire (56651O) INFLATOR Merit Merit 1 ME5490 037099 185466 028821 15 BasixCompak Medical (YB8746) GUIDE 6FR AR Medtronic 1 [id number] 144300 29454 753410 1 1.0 SH catheter ([id number]) COUGAR 300cm Ni 1 [id number] 143448 255793 431626 1 guide wire Vascular ([id number]) ISAAK RX 3.0 x Medtronic 1 [id number] 287737 4586589 549431 5 [id number] 15 stent ([id number]) ISAAK RX 3.0 x Medtronic 1 [id number] 281336 2543667 497237 5 30 stent ([id number]) EXOSEAL 6Fr Cardinal 1 EX600 098514 823596 091854 10 (EX600) Health FEMSTOP Gold St Jerardo 1 [id number] 760347 470210 965510 5 ([id number]) Signature Audit Warner Stage Time Signature Unsigned Intra-Procedure 02/01/2020 Darlene Chavira 1:41:17 PM RT(R) Intra-Procedure 02/01/2020 Alban Fierro 1:41:52 PM RN Intra-Procedure 02/01/2020 Kam Grigsby 1:42:21 PM Aurelio COHEN [facility] [address] [facility] [place] [address]
[~2020-01-31 10:45] MED LIST changes: +BETAPACE 120 M120 MG PO; +FLOMAX0.4 MG PO; +GLUCOPHAGE500 MG PO; +OMEPRAZOLE20 M1 PO; +REGLAN10 MG PO
[2020-01-31] MEDS ORDERED: PRAVACHOL20 MG PO (11:09)
[2020-01-31] MEDS ORDERED: CYCLOBENZAPRINE10 MG PO (11:10)
[2020-01-31] MEDS ORDERED: PHENERGAN25 M1 PO (11:10)
[2020-01-31] MEDS ORDERED: REGLAN10 MG PO (11:11)
[2020-01-31] MEDS ORDERED: ZOLOFT50 MG PO (11:12)
[2020-01-31 11:31] LABS: HEMATOCRIT 47.8 % (42.0-54.0); HEMOGLOBIN 16.9 g/dL (13.5-17.5); LYMPHOCYTES 25.8 % (15-50); MCH 29.8 pg (26.0-34.0); MCHC 35.4 g/dL (31.0-37.0); MCV 84.3 fL (80.0-100.0); NEUTROPHILS 68.3 % (40-80); PLATELET COUNT 230 10x3/uL (130-400); RBC 5.67 10x6/uL (4.20-6.10); RDW 12.8 % (11.5-14.5); WBC 9.9 10x3/uL (4.8-10.8)
[2020-01-31 11:36] VITALS: BP 130/92
[2020-01-31 11:53] LABS: ALKALINE PHOSPHATASE 87 U/L (30-120); ALT (SGPT) 36 U/L (10-68); BILIRUBIN - TOTAL 0.55 mg/dL (0.2-1.3); CALC OSMOLALITY 283 mosm/kg (275-300); CALCIUM 9.4 mg/dL (8.5-10.1); CARBON DIOXIDE 23.4 mmol/L (21.0-32.0); CHLORIDE - SERUM 96 mmol/L (98-107); CREATINE KINASE 33 UL (21-232); CREATININE - SERUM 1.2 mg/dL (0.6-1.3); LIPASE 100 U/L (73-393); POTASSIUM - SERUM 4.6 mmol/L (3.5-5.1); PRO BNP 39 pg/mL (0-125); PROTEIN - SERUM 8.2 g/dL (6.4-8.2); SODIUM 131 mmol/L (136-145); TROPONIN-I < 0.017 ng/mL (0.000-0.060); UREA NITROGEN 18 mg/dL (7-18); eGFR NON AFRICAN AMERICAN 67 mL/min (90-120)
[2020-01-31 11:57] LABS: GLUCOSE 445 mg/dL (74-106)
--- NOTE | 2020-01-31 11:59 | NUR ---
CRITICAL LAB: GLUCOSE 445 MG/DL DR JAIMES NOTIFIED
[2020-01-31 14:38] VITALS: BP 140/97
[2020-01-31 16:56] LABS: CHOL - HDL RATIO 10.5 ratio (2.3-4.9); LDL-HDL RATIO 6.1 ratio (1.5-3.5)
[2020-01-31 17:38] VITALS: BP 124/82
[2020-01-31 17:51] LABS: CKMB 0.5 U/L (0.0-3.6); CREATINE KINASE 31 UL (21-232)
[2020-01-31 17:58] LABS: TROPONIN-I 0.115 ng/mL (0.000-0.060)
--- NOTE | 2020-01-31 19:10 | NUR ---
REPORT TO KEN OLIVA
[2020-01-31 20:00] VITALS: BP 142/90
--- NOTE | 2020-01-31 20:14 | NUR ---
PATIENT ARRIVED FROM THE ER. PATIENT IS ALERT AND ORIENTED, RESTING COMFORTABLY IN BED. RESPIRATIONS ARE EVEN AND UNLABORED. NO S/S OF DISTRESS. NO C/O PAIN. CALL LIGHT WITHIN REACH. WILL CPOC.
[2020-02-01 04:00] VITALS: BP 137/78
[2020-02-01 07:37] LABS: BASOPHILS 0.2 % (0-2); HEMATOCRIT 44.4 % (42.0-54.0); HEMOGLOBIN 15.5 g/dL (13.5-17.5); IMMATURE GRANULOCYTES 0.2 % (0-5); MCH 29.6 pg (26.0-34.0); MCHC 34.9 g/dL (31.0-37.0); MCV 84.7 fL (80.0-100.0); MEAN PLATELET VOLUME 11.9 fL (7.4-10.4); MONOCYTES 4.9 % (2-11); NEUTROPHILS 67.7 % (40-80); PLATELET COUNT 243 10x3/uL (130-400); RBC 5.24 10x6/uL (4.20-6.10); RDW 12.6 % (11.5-14.5)
[2020-02-01 07:44] LABS: ALBUMIN 3.6 g/dL (3.4-5.0); ALKALINE PHOSPHATASE 74 U/L (30-120); ALT (SGPT) 32 U/L (10-68); BILIRUBIN - TOTAL 0.67 mg/dL (0.2-1.3); CALC OSMOLALITY 286 mosm/kg (275-300); CALCIUM 8.7 mg/dL (8.5-10.1); CARBON DIOXIDE 21.6 mmol/L (21.0-32.0); CHLORIDE - SERUM 99 mmol/L (98-107); GLUCOSE 337 mg/dL (74-106); MAGNESIUM - SERUM 1.5 mg/dL (1.8-2.4); POTASSIUM - SERUM 4.4 mmol/L (3.5-5.1); SODIUM 136 mmol/L (136-145); UREA NITROGEN 17 mg/dL (7-18); eGFR NON AFRICAN AMERICAN 83 mL/min (90-120)
[2020-02-01 09:00] VITALS: BP 130/89
--- NOTE | 2020-02-01 12:39 | NUR ---
PRE-OPS GIVEN. TO TELEPHONE SWITCHBOARD OPERATOR BY BED.
[2020-02-01 13:20] VITALS: Ht 180.3 cm; Wt 88.5 kg
--- NOTE | 2020-02-01 13:59 | NUR ---
BACK FROM INSTRUCTOR TAP DANCING. VS WNL. SOFY GROIN STABLE WITHOUT BLEEDING OR HEMATOMA NOTED. FEMSTOP INTACT. WILL MONITOR.
[2020-02-01] MEDS ORDERED: ASPIRIN81 MG PO (14:36)
[2020-02-01] MEDS ORDERED: PLAVIX75 MG PO (15:12)
--- NOTE | 2020-02-01 17:38 | NUR ---
BED REST UP. GROIN STABLE.
--- NOTE | 2020-02-01 17:55 | NUR ---
IV AND TELEMETRY DCD. DC PLANS GIVEN. UNDERSTANDING VOICED. ESCORTED TO CAR BY W/C.
--- NOTE | 2020-02-01 19:13 | MORECARE ---
CASE MANAGEMENT DISCHARGE SUMMARY PATIENT: LEONELA PHOENIX JR UNIT: [id number] ADM DATE: 01/31/20 AGE: 55 : [birth year] SEX: M ROOM/BED: D.2121 AUTHOR: ZEUS EPPS PHYSICIAN: REFERRING PHYSICIAN: DOMENIC PADILLA MD DATE OF SERVICE: 02/01/20 Discharge Plan Patient Name: LEONELA PHOENIX [facility] [facility] 1965 Planned Disposition: Home or Self Care Anticipated Discharge Date: Discharge Date: 02/01/2020 Expected LOS: 0 Initial Reviewer: [email or web address] Initial Review Date: 01/31/2020 Generated: 02/01/20 8:12 pm DCPIA - Discharge Planning Initial Assessment Updated by [email or web address]: Karen Hart on 02/01/20 7:09 pm * Is the patient Alert and Oriented? Yes * How many steps to enter\exit or inside your home? 0/0 * PCP [email or web address] * Pharmacy [facility] * Preadmission Environment Home with Family * ADLs Independent * Equipment None * Community resources currently utilized None * Additional services required to return to the preadmission environment? Yes * Can the patient safely return to the preadmission environment? Yes * Has this patient been hospitalized within the prior 30 days at any hospital? Yes Patient Name: LEONELA PHOENIX Page [id number] at 1913 All edits/amendments must be made on the electronic document DICTATION DATE: 02/01/201911 RAT TRAPPER: GONZÁLEZ 02/01/201911 RPT#: [id number] DC DATE:02/01/20 STATUS: DIS IN [facility] [address] [place] [address] END OF REPORT
--- NOTE | 2020-02-01 19:26 | MORECARE ---
CASE MANAGEMENT DISCHARGE SUMMARY PATIENT: LEONELA PHOENIX UNIT: [id number] ADM DATE: 01/31/20 AGE: 55 : [birth year] SEX: M ROOM/BED: D.7489 AUTHOR: ZEUS EPPS PHYSICIAN: REFERRING PHYSICIAN: DOMENIC PADILLA MD DATE OF SERVICE: 02/01/20 Discharge Plan Patient Name: LEONELA PHOENIX Facility: [facility]:[place] : 1965 Planned Disposition: Home or Self Care Anticipated Discharge Date: Discharge Date: 02/01/2020 Expected LOS: 0 Initial Reviewer: [email or web address] Initial Review Date: 01/31/2020 Generated: 02/01/20 8:26 pm Comments DCP- Discharge Planning Updated by [email or web address]: Karen Hart on 02/01/20 6:[address] Patient Name: LEONELA PHOENIX Admission Status: ER Accout number: [id number] Admission Date: 01-31-2020 : 1965 Admission Diagnosis:UNSTABLE ANGINA Attending: DOMENIC PADILLA Current LOS: 1 Anticipated DC Date: Planned Disposition: Home or Self Care Primary Insurance: UNINSURED DISCOUNT PLAN late entry assessment competed @ 1545 02/01/20 Discharge Planning Comments: CM met with patient to complete initial dc planning assessment. Verbal consent given by patient to complete assessment. CM verified patient's address, phone number, and emergency contact phone numbers. Patient lives at home with his and is independent. At discharge patient plans to return home and feels this is a safe discharge. CM discussed availability of home health, rehab services, and medical equipment. Pt denies the need for home health services. Patient reports chronic hip pain that interferes ambulation. States he is unable to afford a cane at this time. [place] Cm [place] pt [place] so that he may borrow a cane at no cost. CM also provided pt a good rx card for a new Plavix prescription. The judge at [employer] is 10.45. Pt states he can purchase this. Patient denies other known discharge needs at this time. Transportation provider at discharge will be his , Brii. CM will continue to follow and will assist as needed with dc plans/needs. Client Services Coordinator: Karen Hart DCPIA - Discharge Planning Initial Assessment Updated by [email or web address]: Karen Hart on 02/01/20 7:09 pm * Is the patient Alert and Oriented? Yes * How many steps to enter\exit or inside your home? 0/0 * PCP [email or web address] * Pharmacy [facility] * Preadmission Environment Home with Family * ADLs Independent * Equipment None * Community resources currently utilized None * Additional services required to return to the preadmission environment? Yes * Can the patient safely return to the preadmission environment? Yes * Has this patient been hospitalized within the prior 30 days at any hospital? Yes Last DP export: 02/01/20 6:13 Patient Name: LEONELA PHOENIX Page [id number] at 1925 All edits/amendments must be made on the electronic document DICTATION DATE: 02/01/201925 INTEGRATED CIRCUITS INSPECTOR: GONZÁLEZ 02/01/201925 RPT#: [id number] DC DATE:02/01/20 STATUS: DIS IN [address] [place] [address] END OF REPORT
--- NOTE | 2020-02-04 09:31 | OP ---
PATIENT NAME: LEONELA PHOENIX JR MEDICAL RECORD: [id number] :[birth year] LOCATION:D. D.2121 ADMISSION DATE:01/31/20 SURGEON: ZOYA BOURNE MD DATE OF OPERATION: 02/01/2020 PROCEDURE: Left heart catheterization, selective coronary angiography, and right femoral artery approach. CATHETERS: A 5-[place] sheath, 5/4 left and right Viki, 5/4 pig. The procedure was well tolerated. We proceeded to do a PTCA stenting of the right coronary. The procedure was finished. FINDINGS: Left ventriculography in 30-degree PECK view: Normal wall motion. Normal systolic function. CORONARY ANATOMY: LEFT MAIN: Left main is free of disease. LAD: Has luminal irregularities. No flow obstructive disease. CIRCUMFLEX: Circumflex sows luminal irregularities. No flow obstructive disease. 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 PLAN: Intervention momentarily. DESCRIPTION OF PROCEDURE: A 5-[place]ican sheath was exchanged for a 6-[place]ican sheath. AR guiding catheter provided excellent guiding support catheter around and across with an iFR wire. We then used a BMW wire with multiple areas of stenosis. Stent deployed was a 3.0 x 15 and 3.0 x 30, Esparto drug-eluting stent up to 14 atmospheres for 45 seconds. Final angiography shows excellent resolution of severe diffuse stenosis, no significant residual. WINIFRED flow was 3 throughout the procedure. Sheath was closed with ExoSeal device. Plavix was loaded in the lab. TRANSINT:[id number] Voice Confirmation ID: [id number] DOCUMENT ID: [id number] ZOYA BOURNE MD at 0931 CC: [id number] DICTATION DATE: 02/01/20 1336 DIRECTOR MEDICAID: 02/01/20 [id number] DIS IN 02/01/20 [id number] [place] [address]
== END 2020-02-01 17:56 | disposition home or self-care (01) | DRG 247 ==
LOC: D.ER 10:45 → D.M2 17:41 → OBSVTIME 17:41 → D.M2 19:17
PROVIDERS: Emergency Medicine; Internal Medicine Interventional Cardiology; ADMIT Family Medicine; ATTEND Family Medicine
PROC: B2111ZZ Fluoroscopy of Multiple Coronary Arteries using Low Osmolar Contrast (ICD-10-PCS; 2020-02-01)
PROC: B2151ZZ Fluoroscopy of Left Heart using Low Osmolar Contrast (ICD-10-PCS; 2020-02-01)
PROC: 027034Z Dilation of Coronary Artery, One Artery with Drug-eluting Intraluminal Device, Percutaneous Approach (ICD-10-PCS; principal; 2020-02-01 10:00)
PROC: 4A023N7 Measurement of Cardiac Sampling and Pressure, Left Heart, Percutaneous Approach (ICD-10-PCS; 2020-02-01 10:00)
DX: I25.110 Atherosclerotic heart disease of native coronary artery with unstable angina pectoris (principal); E87.1 Hypo-osmolality and hyponatremia; I48.0 Paroxysmal atrial fibrillation; E11.65 Type 2 diabetes mellitus with hyperglycemia; I10 Essential (primary) hypertension; F41.9 Anxiety disorder, unspecified